=== PATIENT | female | born 2005 | race American Indian/Alaskan Native ===

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

== ENCOUNTER 2023-12-10 19:08 | Emergency (ER) | payer MEDICAID ==
[2023-12-10 19:59] LABS: BASOPHILS PERCENT AUTO 0.2 % (0.0-1.0); EOSINOPHILS PERCENT AUTO 0.5 % (1.0-3.0); HEMATOCRIT 31.6 % (37.0-47.0); HEMOGLOBIN 10.1 g/dL (12.0-16.0); LYMPHOCYTES PERCENT AUTO 11.4 % (20.5-50.1); MEAN CORPUSCULAR HEMOGLOBIN 26.1 pg (27.0-34.0); MEAN CORPUSCULAR VOLUME 81.7 fL (80-100); MONOCYTES PERCENT AUTO 8.6 % (2-8); NEUTROPHILS PERCENT AUTO 79.3 % (42.2-75.2); PLATELET COUNT,PLT 415 10^3/uL (150-450); RED BLOOD CELL COUNT 3.87 10^6/uL (4.2-5.4)
[2023-12-10] MEDS: Sodium Chloride 0.9% 10 ML Syringe FLUSH PRN (20:08)
[2023-12-10 20:15] LABS: INR 0.9 (0.9-1.2); PROTHROMBIN TIME 9.1 SEC (9.0-12.0); PTT,PARTIAL THROMBOPLSTIN TIME 23.6 SEC (22.0-34.0)
[2023-12-10 20:18] LABS: ALANINE AMINOTRANSFERASE,ALT 18 U/L (14-59); ALBUMIN 2.7 g/dL (3.4-5.0); ALKALINE PHOSPHATASE 121 U/L (46-116); ANION GAP 15.9 mEq/L (7-13); ASPARTATE AMNIOTRANSFERASE,AST 28 U/L (15-37); BILIRUBIN TOTAL 0.2 mg/dL (0.2-1.0); BLOOD UREA NITROGEN,BUN 9 mg/dL (7-18); BUN/CREATININE RATIO 17.3 (No establ ref range); CALCIUM 8.2 mg/dL (8.5-10.1); CARBON DIOXIDE,CO2 23 mmol/L (21-32); CHLORIDE,CL 101 mmol/L (98-107); CREATININE 0.52 mg/dL (0.55-1.02); GLUCOSE RANDOM 107 mg/dL (70-99); POTASSIUM,K 3.9 mmol/L (3.5-5.1); PROTEIN TOTAL,TP 7.2 g/dL (6.4-8.2); SODIUM,NA 136 mmol/L (136-145)
[2023-12-10 20:24] LABS: ESTIMATED GFR 136 mL/min (>=60)
[2023-12-10] MEDS: Acetaminophen 500 MG Tab PO ONE (22:48)
== END 2023-12-10 23:20 | disposition home or self-care (01) ==
LOC: DL.ED 19:08
DX: O99.613 Diseases of the digestive system complicating pregnancy, third trimester (principal); K80.20 Calculus of gallbladder without cholecystitis without obstruction; Z3A.32 32 weeks gestation of pregnancy
CPT/HCPCS: 36415; 71045; 76805; 80053; 84484; 84702; 85025; 85610; 85730; 93005; 93010; 99284; 99285; A9270-GY; J3490

== ENCOUNTER 2024-01-18 00:35 | Inpatient (IN) | payer MEDICAID ==
[2024-01-18 01:56] LABS: CREATININE,URINE RAND 88.16 mg/dL (No establ ref range); PROTEIN CREATININE RATIO,URINE 628.4 mg/g (<150.0); PROTEIN,URINE RANDOM 55.4 mg/dL (0.0-11.9)
[2024-01-18 02:07] LABS: APPEARANCE,URINE CLEAR (CLEAR); BILIRUBIN,URINE NEGATIVE (NEGATIVE); COLOR,URINE YELLOW (YELLOW); GLUCOSE,URINE NEGATIVE (NEGATIVE); KETONES,URINE NEGATIVE (NEGATIVE); LEUKOCYTE ESTERASE,URINE NEGATIVE (NEGATIVE); NITRITE,URINE NEGATIVE (NEGATIVE); OCCULT BLOOD,URINE MODERATE (NEGATIVE); PH,URINE 6.5 (5.0-9.0); PROTEIN,URINE NEGATIVE (NEGATIVE)
[2024-01-18] MEDS ORDERED: Carboprost Tromethamine 250 MCG/1 ML Amp IM PRN (02:07)
[2024-01-18] MEDS ORDERED: fentaNYL 100 MCG/2 ML SDV IVPUSH PRN (02:07)
[2024-01-18] MEDS ORDERED: Sodium Chloride 0.9% 10 ML Syringe FLUSH PRN (02:07)
[2024-01-18] MEDS ORDERED: Misoprostol 400 MCG (4 X 100 MCG TAB) RECTAL PRN (02:07)
[2024-01-18] MEDS ORDERED: ePHEDrine 50 MG/ML SDV IVPUSH PRN ×2 (02:07→03:28)
[2024-01-18] MEDS ORDERED: Tranexamic Acid 1,000 MG in Sodium Chloride 0.9% 100 ML IV PRN (02:07)
[2024-01-18] MEDS ORDERED: Methylergonovine 0.2 MG/1 ML Amp IM PRN (02:07)
[2024-01-18] MEDS ORDERED: Phenylephrine HCl In 0.9% NaCl 1 MG/10 ML Syringe IVPUSH PRN ×2 (02:07→03:28)
[2024-01-18] MEDS ORDERED: Acetaminophen 325 MG Tab PO PRN (02:07)
[2024-01-18] MEDS ORDERED: Ondansetron 4 MG/2 ML SDV IVPUSH PRN (02:07)
[2024-01-18] MEDS ORDERED: Penicillin G Potassium 3 MILLUNITS in Sodium Chloride 0.9% 100 ML IV SCH (02:15)
[2024-01-18] MEDS ORDERED: Ropivacaine 200 MG in Premix Bag 1 BAG EPIDUR SCH ×2 (02:15→03:30)
[2024-01-18 02:24] LABS: HEMATOCRIT 34.1 % (37.0-47.0); HEMOGLOBIN 11.2 g/dL (12.0-16.0); MEAN CORPUSCULAR HEMOGLOBIN 26.6 pg (27.0-34.0); MEAN CORPUSCULAR HGB CONC 32.8 g/dL (33.0-35.0); RED BLOOD CELL COUNT 4.21 10^6/uL (4.2-5.4); WHITE BLOOD CELL COUNT,WBC 6.9 10^3/uL (5.0-10.0)
[2024-01-18] MEDS: Penicillin G Potassium 5 MILLUNITS in Sodium Chloride 0.9% 100 ML IV ONE (02:40)
[2024-01-18 02:42] LABS: ALANINE AMINOTRANSFERASE,ALT 17 U/L (14-59); ASPARTATE AMNIOTRANSFERASE,AST 14 U/L (15-37); BLOOD UREA NITROGEN,BUN 5 mg/dL (7-18); CREATININE 0.53 mg/dL (0.55-1.02); ESTIMATED GFR 136 mL/min (>=60); LACTATE DEHYDROGENASE,LDH 171 U/L (81-234); URIC ACID 4.2 mg/dL (2.6-6.0)
[2024-01-18] MEDS: Lactated Ringers 1,000 ML IV SCH (02:46)
[2024-01-18] MEDS: Labetalol 100 MG Tab PO ONE (02:46)
[2024-01-18] MEDS ORDERED: fentaNYL 100 MCG/2 ML SDV ONE ×2 (03:06→10:50)
[2024-01-18] MEDS ORDERED: Bupivacaine 0.25% 10 ML SDV ONE ×2 (03:06→10:50)
[2024-01-18] MEDS: Lactated Ringers 1,000 ML IV ONE (06:38)
[2024-01-18] MEDS: Penicillin G Potassium 3 MILLUNITS in Sodium Chloride 0.9% 100 ML IV SCH (06:39)
[2024-01-18] MEDS: Oxytocin/Normal Saline 30 UNIT/500 ML BAG IV SCH (07:53)
[2024-01-18] MEDS ORDERED: Simethicone 80 MG Tab.Chew PO PRN (13:20)
[2024-01-18] MEDS ORDERED: Oxytocin 10 Units/1 ML SDV IM PRN (13:20)
[2024-01-18] MEDS: Witch Hazel Medicated Pads 100/Jar TOP PRN (13:52)
[2024-01-18] MEDS: Benzocaine/Menthol 20%-0.5% Spray 78 GM Cannister TOP PRN (13:52)
[2024-01-18] MEDS: Lidocaine 1% 30 ML SDV INJECT ONE (13:53)
[2024-01-18] MEDS: Ibuprofen 800 MG Tab PO PRN (16:45)
[2024-01-18] MEDS: Docusate Sodium 100 MG Cap PO PRN (20:30)
[2024-01-19 06:23] LABS: HEMATOCRIT 29.2 % (37.0-47.0); HEMOGLOBIN 9.4 g/dL (12.0-16.0); MEAN CORPUSCULAR HEMOGLOBIN 26.6 pg (27.0-34.0); MEAN CORPUSCULAR HGB CONC 32.2 g/dL (33.0-35.0); MEAN CORPUSCULAR VOLUME 82.5 fL (80-100); RED BLOOD CELL COUNT 3.54 10^6/uL (4.2-5.4); WHITE BLOOD CELL COUNT,WBC 8.9 10^3/uL (5.0-10.0)
[2024-01-19] MEDS: Prenatal Multivitamin with Calcium/Folic Acid/Iron Tab PO SCH (08:49)
[2024-01-19] MEDS: Acetaminophen 325 MG Tab PO PRN (20:37)
[2024-01-20] MEDS: Measles, Mumps & Rubella Vaccine 0.5 ML SDV SUBCUT ONE (18:05)
[2024-01-20] MEDS ORDERED: Bupivacaine 0.25% 10 ML SDV EPIDUR ONE ×2 (18:21)
[2024-01-20] MEDS ORDERED: fentaNYL 100 MCG/2 ML SDV EPIDUR ONE ×2 (18:21)
[2024-01-20] MEDS ORDERED: Ropivacaine 100 ML EPIDUR ONE ×2 (18:21)
== END 2024-01-20 18:22 | disposition home or self-care (01) | DRG 807 ==
LOC: DL.OBCHECK 00:35 → DL.OB 02:07 → OBSVTOIN 12:57 → DL.OB 12:57
PROVIDERS: ADMIT Family Medicine; ATTEND Family Medicine
PROC: 10E0XZZ Delivery of Products of Conception, External Approach (ICD-10-PCS; principal; 2024-01-18)
PROC: 10907ZC Drainage of Amniotic Fluid, Therapeutic from Products of Conception, Via Natural or Artificial Opening (ICD-10-PCS; 2024-01-18)
PROC: 0HQ9XZZ Repair Perineum Skin, External Approach (ICD-10-PCS; 2024-01-18)
PROC: 3E0R3BZ Introduction of Anesthetic Agent into Spinal Canal, Percutaneous Approach (ICD-10-PCS; 2024-01-18)
PROC: 00HU33Z Insertion of Infusion Device into Spinal Canal, Percutaneous Approach (ICD-10-PCS; 2024-01-18)
DX: O13.4 Gestational [pregnancy-induced] hypertension without significant proteinuria, complicating childbirth (principal); Z37.0 Single live birth; O70.0 First degree perineal laceration during delivery; O99.02 Anemia complicating childbirth; O99.824 Streptococcus B carrier state complicating childbirth; Z3A.37 37 weeks gestation of pregnancy; Z90.89 Acquired absence of other organs
CPT/HCPCS: 01967; 36415; 51702; 59409; 81003; 82565; 82570; 83615; 84156; 84450; 84460; 84520; 84550; 85027; 86592; 90471; 90707; A9270-GY; J0665; J2540; J2590; J2795; J3010; J3490; J7120

== ENCOUNTER 2024-09-27 19:05 | Emergency (ER) | payer MEDICAID | END 2024-09-27 20:08 | disposition left against medical advice (07) | LOC: DL.ED 19:05 | DX: Z53.21 Procedure and treatment not carried out due to patient leaving prior to being seen by health care provider (principal) ==

== ENCOUNTER 2025-03-25 21:24 | Emergency (ER) | payer MEDICAID ==
[2025-03-25] MEDS ORDERED: Sodium Chloride 0.9% 10 ML Syringe FLUSH PRN (21:44)
[2025-03-25 21:56] LABS: BASOPHILS PERCENT AUTO 0.1 % (0.0-1.0); EOSINOPHILS PERCENT AUTO 0.1 % (1.0-3.0); LYMPHOCYTES PERCENT AUTO 7.5 % (20.5-50.1); MONOCYTES PERCENT AUTO 5.4 % (2-8); NEUTROPHILS PERCENT AUTO 86.9 % (42.2-75.2); PLATELET COUNT,PLT 337 10^3/uL (150-450); RED BLOOD CELL COUNT 3.74 10^6/uL (4.2-5.4); WHITE BLOOD CELL COUNT,WBC 13.6 10^3/uL (5.0-10.0)
[2025-03-25] MEDS: Ondansetron 4 MG/2 ML SDV IVPUSH ONE (21:58)
[2025-03-25 22:16] LABS: ALANINE AMINOTRANSFERASE,ALT 25.0 U/L (14-59); ASPARTATE AMNIOTRANSFERASE,AST 37.0 U/L (15-37); BILIRUBIN TOTAL 0.4 mg/dL (0.2-1.0); BLOOD UREA NITROGEN,BUN 7.0 mg/dL (7-18); CARBON DIOXIDE,CO2 22.0 mmol/L (21-32); CHLORIDE,CL 106.0 mmol/L (98-107); CREATININE 0.52 mg/dL (0.55-1.02); EST CRCL DRUG DOSING (CG) 129.14 mL/min; GLUCOSE RANDOM 117.0 mg/dL (70-99); POTASSIUM,K 3.7 mmol/L (3.5-5.1); PROTEIN TOTAL,TP 7.2 g/dL (6.4-8.2); SODIUM,NA 140.0 mmol/L (136-145)
[2025-03-25 22:17] LABS: A/G RATIO 0.71; ESTIMATED GFR 135.0 mL/min (>=60)
[2025-03-25 23:08] LABS: LACTIC ACID 1.0 mmol/L (0.4-2.0)
[2025-03-25 23:48] LABS: APPEARANCE,URINE SLIGHTLY CLOUDY (CLEAR); GLUCOSE,URINE 100 (NEGATIVE); OCCULT BLOOD,URINE NEGATIVE (NEGATIVE)
== END 2025-03-26 01:19 | disposition home or self-care (01) ==
LOC: DL.ED 21:24
DX: O99.612 Diseases of the digestive system complicating pregnancy, second trimester (principal); K80.20 Calculus of gallbladder without cholecystitis without obstruction; O21.9 Vomiting of pregnancy, unspecified; Z79.899 Other long term (current) drug therapy; Z3A.20 20 weeks gestation of pregnancy
CPT/HCPCS: 36415; 76705; 80053; 81003; 83605; 83690; 84145; 85025; 96361; 96374; 96375; 99284; 99284-25; J2270; J2405; J7030

== ENCOUNTER 2025-07-28 02:44 | Inpatient (IN) | payer MEDICAID ==
[2025-07-28] MEDS: Lactated Ringers 1,000 ML IV ONE (05:15)
[2025-07-28] MEDS ORDERED: Carboprost Tromethamine 250 MCG/1 mL Vial IM PRN ×2 (05:15→08:29)
[2025-07-28] MEDS ORDERED: Sodium Chloride 0.9% 10 ML Syringe FLUSH PRN (05:15)
[2025-07-28] MEDS ORDERED: Oxytocin/Lactated Ringers 30 UNIT/500 ML BAG IV SCH (05:15)
[2025-07-28] MEDS ORDERED: Ondansetron 4 MG/2 ML SDV IVPUSH PRN (05:15)
[2025-07-28 05:57] LABS: PLATELET COUNT,PLT 335.0 10^3/uL (150-450); RED BLOOD CELL COUNT 4.23 10^6/uL (4.2-5.4); WHITE BLOOD CELL COUNT,WBC 11.1 10^3/uL (5.0-10.0)
[2025-07-28] MEDS: Penicillin G Potassium 5 MILLUNITS in Sodium Chloride 0.9% 100 ML IV ONE (06:18)
[2025-07-28] MEDS: Lactated Ringers 1,000 ML IV SCH (06:59)
[2025-07-28] MEDS ORDERED: ePHEDrine 50 MG/ML SDV IVPUSH PRN (07:03)
[2025-07-28] MEDS ORDERED: Ropivacaine 200 MG in Premix Bag 1 BAG EPIDUR SCH (07:15)
[2025-07-28] MEDS: Oxytocin/Normal Saline 30 UNIT/500 ML BAG IV SCH (08:16)
[2025-07-28] MEDS ORDERED: Witch Hazel Medicated Pads 100/Jar TOP PRN (08:29)
[2025-07-28] MEDS ORDERED: Oxytocin 10 Units/1 ML SDV IM PRN (08:29)
[2025-07-28] MEDS ORDERED: Penicillin G Potassium 3 MILLUNITS in Sodium Chloride 0.9% 100 ML IV SCH (09:00)
[2025-07-28] MEDS: Benzocaine/Menthol 20%-0.5% Spray 78 GM Cannister TOP PRN (09:18)
[2025-07-28] MEDS: Prenatal Multivitamin with Calcium/Folic Acid/Iron Tab PO SCH (09:18)
[2025-07-29] MEDS: Measles, Mumps & Rubella Vaccine 0.5 ML SDV SUBCUT ONE (11:35)
[2025-07-30] MEDS ORDERED: fentaNYL 100 MCG/2 ML SDV EPIDUR ONE (09:29)
[2025-07-30] MEDS ORDERED: Ropivacaine 100 ML EPIDUR ONE (09:29)
== END 2025-07-30 09:30 | disposition home or self-care (01) | DRG 807 ==
LOC: DL.OBCHECK 02:44 → DL.OB 07:05 → OBSVTOIN 08:14
PROVIDERS: ADMIT Family Medicine; ATTEND Family Medicine
PROC: 10E0XZZ Delivery of Products of Conception, External Approach (ICD-10-PCS; principal; 2025-07-28)
PROC: 10907ZC Drainage of Amniotic Fluid, Therapeutic from Products of Conception, Via Natural or Artificial Opening (ICD-10-PCS; 2025-07-28)
PROC: 3E033VJ Introduction of Other Hormone into Peripheral Vein, Percutaneous Approach (ICD-10-PCS; 2025-07-28)
PROC: 3E03329 Introduction of Other Anti-infective into Peripheral Vein, Percutaneous Approach (ICD-10-PCS; 2025-07-28)
PROC: 00HU33Z Insertion of Infusion Device into Spinal Canal, Percutaneous Approach (ICD-10-PCS; 2025-07-28)
PROC: 3E0R3BZ Introduction of Anesthetic Agent into Spinal Canal, Percutaneous Approach (ICD-10-PCS; 2025-07-28)
DX: O60.14X0 Preterm labor third trimester with preterm delivery third trimester, not applicable or unspecified (principal); Z3A.36 36 weeks gestation of pregnancy; Z37.0 Single live birth; O99.02 Anemia complicating childbirth; Z28.39 Other underimmunization status
CPT/HCPCS: 36415; 59409; 85027; 90471; 90707; A9270-GY; J2371; J2540; J2590; J2795; J3010; J7120